=== PATIENT | female | born 1985 | race Caucasian/White ===

== ENCOUNTER 2018-04-08 11:04 | Emergency (ER) | payer SELFPAY ==
[~2018-04-08] VITALS: Ht 162.6 cm; Wt 100.0 kg
[~2018-04-08 11:04] MED LIST: AMOXICILLIN500 MG OR; GENOPTIC0.3 % OD; LORTAB 5 OR; LORTAB 7.5 OR; PREVACID15 M1 OR; PRILOSEC20 MG OR
[2018-04-08 12:02] LABS: HEMATOCRIT 42.7 % (37.0-47.0); HEMOGLOBIN 14.4 g/dl (12.0-16.0); IMMATURE GRANULOCYTES 0.3 % (0.0-5.0); MEAN CORPUSCULAR HGB CONC 33.7 g/L CALC (32.0-36.0); NEUT# 5.06 thou/uL (2.00-7.15); RED BLOOD COUNT 4.64 mill/uL (4.20-5.60); RED CELL DISTRI WIDTH 12.4 % (11.5-15.5)
[2018-04-08 12:22] LABS: ALKALINE PHOSPHATASE 67 u/l (38-126); ANION GAP 14 (6-22 (CALC)); BILIRUBIN, TOTAL 0.3 mg/dL (0.0-1.4); BUN 10 mg/dL (7-17); BUN/CREATININE RATIO 16 (12-20 (CALC)); CARBON DIOXIDE 22 mmol/l (22-30); CHLORIDE 107 mmol/l (95-108); CREATININE 0.6 mg/dL (0.5-1.0); GFR > 60 ML/MIN (>=60 (CALC)); GFR FOR AFR.AMER. > 60 ML/MIN (>=60 (CALC)); POTASSIUM 4.6 mmol/l (3.5-5.1); SGOT/AST 23 u/l (14-36); SODIUM 138 mmol/l (137-146); TOTAL PROTEIN 7.1 g/dL (6.3-8.2)
[2018-04-08 12:33] LABS: INFLUENZA A NONE DETECTED (NONE DETECT); INFLUENZA B NONE DETECTED (NONE DETECT)
[2018-04-08] MEDS ORDERED: ONDANSETRON4 MG PO (12:46)
[2018-04-08] MEDS ORDERED: TORADOL PO (12:46)
[2018-04-08] MEDS ORDERED: ZITHROMAX250 MG PO (12:46)
[2018-04-08 12:49] VITALS: BP 124/82
== END 2018-04-08 12:56 | disposition home or self-care (01) | DRG 153 ==
LOC: ED 11:04
PROVIDERS: Emergency Medicine
DX: J06.9 Acute upper respiratory infection, unspecified (principal); F17.210 Nicotine dependence, cigarettes, uncomplicated

== ENCOUNTER 2018-10-07 19:27 | Emergency (ER) | payer SELFPAY ==
[~2018-10-07] VITALS: Ht 162.6 cm; Wt 100.4 kg
[~2018-10-07 19:27] MED LIST changes: +ONDANSETRON4 MG PO; +TORADOL PO; +ZITHROMAX250 MG PO
--- NOTE | 2018-10-07 20:18 | NUR ---
BREATHING TREATMENT GIVEN. BREATHING TECH. FOR GOOD DEPOSITION TO THE LUNGS.
[2018-10-07 20:19] LABS: HEMATOCRIT 42.1 % (37.0-47.0); HEMOGLOBIN 14.1 g/dl (12.0-16.0); IMMATURE GRANULOCYTES 0.3 % (0.0-5.0); MEAN CELL VOLUME 91.1 fL CALC (80.0-100.0); MEAN CORPUSCULAR HGB 30.5 pG CALC (26.0-32.0); MEAN CORPUSCULAR HGB CONC 33.5 g/L CALC (32.0-36.0); NEUT# 10.29 thou/uL (2.00-7.15); RED BLOOD COUNT 4.62 mill/uL (4.20-5.60); RED CELL DISTRI WIDTH 12.4 % (11.5-15.5)
[2018-10-07 20:20] LABS: URINE BLOOD DIPSTICK MODERATE (NEGATIVE); URINE COLOR YELLOW; URINE GLUCOSE - DIPSTICK NEGATIVE (NEGATIVE); URINE KETONE TRACE mg/dL (NEGATIVE); URINE LEUK ESTERASE NEGATIVE (NEGATIVE); URINE NITRITE - DIPSTICK NEGATIVE (Negative); URINE PROTEIN - DIPSTICK 30 mg/dL (NEG-TRACE); URINE SPECIFIC GRAVITY >=1.030; URINE UROBILINOGEN - DIPSTICK 0.2 E.U./dL (0.2)
[2018-10-07 20:23] LABS: URINE BILIRUBIN - DIPSTICK NEGATIVE (NEGATIVE)
[2018-10-07 20:29] LABS: URINE MUCUS FEW hpf (NONE-FEW); URINE SQUAMOUS EPITHELIAL CELL FEW EPI/hpf (0-FEW); URINE WBC 0-2 WBC/hpf (0-5)
[2018-10-07 20:31] LABS: ALBUMIN 4.4 g/dL (3.2-5.0); ALKALINE PHOSPHATASE 92 u/l (38-126); ANION GAP 17 (6-22 (CALC)); BILIRUBIN, TOTAL 0.3 mg/dL (0.0-1.4); BUN 14 mg/dL (7-17); BUN/CREATININE RATIO 21 (12-20 (CALC)); CARBON DIOXIDE 21 mmol/l (22-30); CHLORIDE 106 mmol/l (95-108); CREATININE 0.6 mg/dL (0.5-1.0); GFR > 60 ML/MIN (>=60 (CALC)); GFR FOR AFR.AMER. > 60 ML/MIN (>=60 (CALC)); POTASSIUM 4.3 mmol/l (3.5-5.1); SODIUM 139 mmol/l (137-146); TOTAL PROTEIN 7.5 g/dL (6.3-8.2)
[2018-10-07 20:34] LABS: SGOT/AST 95 u/l (14-36)
[2018-10-07] MEDS ORDERED: LOMOTIL2.5 MG PO (21:27)
[2018-10-07] MEDS ORDERED: DOXYCYCL HYC100 MG PO (21:27)
[2018-10-07] MEDS ORDERED: PHENERGAN25 MG/TAB PO (21:27)
[2018-10-07 21:53] VITALS: BP 138/72
== END 2018-10-07 21:51 | disposition home or self-care (01) | DRG 203 ==
LOC: ED 19:27
PROVIDERS: Family Medicine
DX: J20.9 Acute bronchitis, unspecified (principal); F17.290 Nicotine dependence, other tobacco product, uncomplicated; K52.9 Noninfective gastroenteritis and colitis, unspecified; R05 Cough; R09.81 Nasal congestion; R51 Headache; R11.2 Nausea with vomiting, unspecified; R19.7 Diarrhea, unspecified

== ENCOUNTER 2019-02-04 20:35 | Emergency (ER) | payer SELFPAY ==
[~2019-02-04] VITALS: Ht 162.6 cm; Wt 100.0 kg
[~2019-02-04 20:35] MED LIST changes: +DOXYCYCL HYC100 MG PO; +LOMOTIL2.5 MG PO; +PHENERGAN25 MG/TAB PO
[2019-02-04] MEDS ORDERED: ELIMITE52 TOP (20:52)
[2019-02-04 21:00] VITALS: BP 143/102
== END 2019-02-04 21:05 | disposition home or self-care (01) | DRG 607 ==
LOC: ED 20:35
DX: B86 Scabies (principal); F17.200 Nicotine dependence, unspecified, uncomplicated

== ENCOUNTER 2019-02-24 11:41 | Emergency (ER) | payer OTHER ==
[~2019-02-24] VITALS: Ht 162.6 cm; Wt 105.0 kg
[~2019-02-24 11:41] MED LIST changes: +ELIMITE52 TOP
[2019-02-24] MEDS ORDERED: BACTRIM DS1 TAB PO (12:48)
[2019-02-24 14:08] VITALS: BP 140/97
== END 2019-02-24 14:08 | disposition home or self-care (01) ==
LOC: ED 11:41
DX: G43.909 Migraine, unspecified, not intractable, without status migrainosus (principal); L02.411 Cutaneous abscess of right axilla; F17.210 Nicotine dependence, cigarettes, uncomplicated

== ENCOUNTER 2019-02-26 11:36 | Emergency (ER) | payer OTHER ==
[~2019-02-26] VITALS: Ht 162.6 cm; Wt 100.0 kg
[~2019-02-26 11:36] MED LIST changes: +BACTRIM DS1 TAB PO
[2019-02-26 12:34] VITALS: BP 139/95
== END 2019-02-26 12:36 | disposition home or self-care (01) ==
LOC: ED 11:36
DX: Z48.01 Encounter for change or removal of surgical wound dressing (principal)

== ENCOUNTER 2021-04-26 13:01 | Emergency (ER) | payer MEDICAID ==
[~2021-04-26] VITALS: Ht 162.6 cm; Wt 99.7 kg
[2021-04-26 15:31] LABS: HEMATOCRIT 43.7 % (37.0-47.0); HEMOGLOBIN 14.3 g/dl (12.0-16.0); IMMATURE GRANULOCYTES 0.1 % (0.0-5.0); MEAN CELL VOLUME 89.9 fL CALC (80.0-100.0); MEAN CORPUSCULAR HGB 29.4 pG CALC (26.0-32.0); MEAN CORPUSCULAR HGB CONC 32.7 g/dL CAL (32.0-36.0); NEUT# 9.06 thou/uL (2.00-7.15); RED BLOOD COUNT 4.86 mill/uL (4.20-5.60); RED CELL DISTRI WIDTH 13.3 % (11.5-15.5)
[2021-04-26 15:40] LABS: ALBUMIN 4.6 g/dL (3.2-5.0); ALKALINE PHOSPHATASE 105 u/l (38-126); BUN 9 mg/dL (7-17); BUN/CREATININE RATIO 15 (12-20 (CALC)); CHLORIDE 103 mmol/l (95-108); CREATININE 0.6 mg/dL (0.5-1.0); GFR > 60 ML/MIN (>=60 (CALC)); GFR FOR AFR.AMER. > 60 ML/MIN (>=60 (CALC)); POTASSIUM 4.6 mmol/l (3.5-5.1); SGOT/AST 31 u/l (14-36); SODIUM 140 mmol/l (137-146); TOTAL PROTEIN 8.5 g/dL (6.3-8.2)
[2021-04-26 15:41] LABS: ANION GAP 13 (6-22 (CALC)); BILIRUBIN, TOTAL 0.5 mg/dL (0.0-1.4); CARBON DIOXIDE 29 mmol/l (22-30)
[2021-04-26 16:22] LABS: URINE BILIRUBIN - DIPSTICK NEGATIVE (NEGATIVE); URINE BLOOD DIPSTICK TRACE-INTACT (NEGATIVE); URINE COLOR YELLOW; URINE GLUCOSE - DIPSTICK NEGATIVE (NEGATIVE); URINE KETONE NEGATIVE (NEGATIVE); URINE LEUK ESTERASE NEGATIVE (NEGATIVE); URINE PROTEIN - DIPSTICK NEGATIVE (NEG-TRACE); URINE SPECIFIC GRAVITY 1.025; URINE UROBILINOGEN - DIPSTICK 0.2 E.U./dL (0.2)
[2021-04-26 16:23] LABS: URINE NITRITE - DIPSTICK NEGATIVE (Negative)
[2021-04-26] MEDS ORDERED: KEFLEX500 MG PO (17:07)
[2021-04-26 17:37] VITALS: BP 163/87
== END 2021-04-26 17:37 | disposition home or self-care (01) | DRG 552 ==
LOC: ED 13:01
DX: M54.50 Low back pain, unspecified (principal); F17.200 Nicotine dependence, unspecified, uncomplicated

== ENCOUNTER 2021-11-07 17:10 | Emergency (ER) | payer MEDICAID ==
[~2021-11-07 17:10] MED LIST changes: +KEFLEX500 MG PO
== END 2021-11-07 18:05 | disposition home or self-care (01) | DRG 951 ==
LOC: ED 17:10 → LWOBS 18:04
DX: Z53.21 Procedure and treatment not carried out due to patient leaving prior to being seen by health care provider (principal)